=== PATIENT | female | born 1960 | race American Indian/Alaskan Native ===

== ENCOUNTER 2021-03-24 13:51 | Emergency (ER) | payer MEDICARE, OTHER ==
--- NOTE | 2021-03-24 16:37 | Event Note ---
ED Screening Note Date of service: 03/24/21 Time: 16:31 ED Screening Note: 60-year-old female with a past medical history of hypertension and tobacco use presents to the ER today with complaints of hemoptysis. She states that she noticed it today. She also reports mild bleeding from her left nare which has since resolved. She denies any associated wheezing, chest pain, shortness of breath, fever or chills. She states that she take a baby aspirin daily. This initial assessment/diagnostic orders/clinical plan/treatment(s) is/are subject to change based on patients health status, clinical progression and re- assessment by fellow clinical providers in the ED. Further treatment and workup at subsequent clinical providers discretion. Patient/guardian urged not to elope from the ED as their condition may be serious if not clinically assessed and managed. Initial orders include: Chest x-ray CBC/CMP
--- NOTE | 2021-03-24 17:04 | XRay Report ---
CHEST 2 VIEWS INDICATION / CLINICAL INFORMATION: HEMOPTYSIS. COMPARISON: None available. FINDINGS: SUPPORT DEVICES: None. HEART / MEDIASTINUM: No significant abnormality. LUNGS / PLEURA: No significant pulmonary or pleural abnormality. No pneumothorax. ADDITIONAL FINDINGS: No significant additional findings. IMPRESSION: 1. No acute findings. Signer Name: Ru Dawkins MD Signed: 03/24/2021 4:59 PM Workstation Name: [id number]
[2021-03-24 17:21] LABS: Basophils # (Auto) 0.1 K/mm3 (0.0-0.1); Eosinophils # (Auto) 0.1 K/mm3 (0.0-0.4); Eosinophils % (Auto) 0.6 % (0.0-4.3); Hemoglobin 15.5 gm/dl (10.1-14.3); Lymphocytes # (Auto) 2.1 K/mm3 (1.2-5.4); Lymphocytes % (Auto) 22.1 % (13.4-35.0); Mean Corpuscular HGB Conc 34 % (30-34); Mean Corpuscular Volume 92 fl (79-97); Monocytes # (Auto) 0.6 K/mm3 (0.0-0.8); Monocytes % (Auto) 6.1 % (0.0-7.3); Platelet Count 328 K/mm3 (140-440); Red Blood Count 5.01 M/mm3 (3.65-5.03); Red Cell Distribution Width 13.8 % (13.2-15.2)
[2021-03-24 17:34] LABS: Alanine Aminotransferase 17 units/L (7-56); Albumin 4.2 g/dL (3.9-5); BUN/Creatinine Ratio 16; Blood Urea Nitrogen 14 mg/dL (7-17); Calcium 9.6 mg/dL (8.4-10.2); Hemolysis Index 5
--- NOTE | 2021-03-24 21:51 | Emergency Department Report ---
ED General Adult HPI - General Chief complaint: Nosebleed Stated complaint: mouth and nose bleeding PUI?: No Source: patient Mode of arrival: Ambulatory Limitations: No Limitations - History of Present Illness Initial comments: Patient is a 60-year-old -Maced[place] female with a history of morbid obesity, tobacco abuse and hypertension who presents to the ED with acute onset intermittent left-sided epistaxis for the last 12 hours. Patient states that she woke up in the morning and try to clear her throat with a cough and noticed some blood mixed with mucus. Patient states that while she was still in front of her meter trying to wash her mouth she also noticed left-sided nosebleed. Patient states that she tried to pinch her nose at home which helped control the nosebleed but that the nosebleed on the left side became persistent after she sneezed and blew her nose. Patient also complains of nasal and sinus congestion for the last 1 week. Patient states that she decided come to the ED for evaluation when she noticed that the nosebleed was persistent and that each time she cleared her throat she noticed blood mixed with mucus. Patient denies dizziness, syncope, chest pain, shortness of breath, fever, chills, traumatic injury, headache, lightheadedness, abdominal pain, nausea and vomiting or palpitations. MD Complaint: Epistaxis; dry cough; nasal and sinus congestion -: Sudden, hour(s) (12) Location: face Radiation: non-radiation Severity scale (0 -10): 0 Consistency: intermittent Improves with: none Worsens with: other (cough) Associated Symptoms: denies other symptoms, cough, other (Nosebleed). denies: confusion, chest pain, diaphoresis, fever/chills, headaches, loss of appetite, malaise, nausea/vomiting, rash, seizure, syncope, weakness Treatments Prior to Arrival: none - Related Data Previous Rx's Medication Instructions Recorded Last Taken Type Benzonatate [Tessalon Perles] 100 mg PO Q8HR #30 capsule 03/24/21 Unknown Rx Allergies Allergy/AdvReac Type Severity Reaction Status Date / Time fexofenadine [From Parul] Allergy Unknown Verified 03/24/21 15:47 ED Review of Systems ROS: Stated complaint: mouth and nose bleeding Other details as noted in HPI Constitutional: denies: chills, fever Eyes: denies: eye pain, eye discharge, vision change ENT: epistaxis. denies: ear pain, throat pain Respiratory: cough. denies: shortness of breath, wheezing Cardiovascular: denies: chest pain, palpitations Endocrine: no symptoms reported Gastrointestinal: denies: abdominal pain, nausea, diarrhea Genitourinary: denies: urgency, dysuria, discharge Musculoskeletal: denies: back pain, joint swelling, arthralgia Skin: denies: rash, lesions Neurological: denies: headache, weakness, paresthesias Psychiatric: denies: anxiety, depression Hematological/Lymphatic: denies: easy bleeding, easy bruising ED Past Medical Hx - Past Medical History Previous Medical History?: Yes Hx Hypertension: Yes - Surgical History Past Surgical History?: Yes Additional Surgical History: TL - Medications Home Medications: Home Medications Medication Instructions Recorded Confirmed Last Taken Type Benzonatate [Tessalon Perles] 100 mg PO Q8HR #30 capsule 03/24/21 Unknown Rx ED Physical Exam - General Limitations: No Limitations General appearance: alert, in no apparent distress - Head Head exam: Present: atraumatic, normocephalic, normal inspection - Eye Eye exam: Present: normal appearance, PERRL, EOMI Pupils: Present: normal accommodation - ENT ENT exam: Present: normal exam, normal orophraynx, mucous membranes moist, TM's normal bilaterally, normal external ear exam - Neck Neck exam: Present: normal inspection, full ROM - Respiratory Respiratory exam: Present: normal lung sounds bilaterally. Absent: respiratory distress, wheezes, rales, rhonchi, chest wall tenderness, accessory muscle use, decreased breath sounds, prolonged expiratory - Cardiovascular Cardiovascular Exam: Present: normal rhythm, tachycardia, normal heart sounds. Absent: systolic murmur, diastolic murmur, rubs, gallop - GI/Abdominal GI/Abdominal exam: Present: soft, normal bowel sounds. Absent: distended, tenderness, guarding, rebound, hyperactive bowel sounds, hypoactive bowel sounds, organomegaly - Extremities Exam Extremities exam: Present: normal inspection, full ROM, normal capillary refill - Back Exam Back exam: Present: normal inspection, full ROM. Absent: tenderness, CVA tenderness (R), CVA tenderness (L), muscle spasm, paraspinal tenderness, verteb ral tenderness - Neurological Exam Neurological exam: Present: alert, oriented X3, CN II-XII intact, normal gait, reflexes normal - Psychiatric Psychiatric exam: Present: normal affect, normal mood, anxious - Skin Skin exam: Present: warm, dry, intact, normal color. Absent: rash ED Course Vital Signs 03/24/21 03/24/21 16:29 22:15 Temperature 98.4 F Pulse Rate 103 H 72 Respiratory 18 16 Rate Blood Pressure 184/121 164/117 [Right] O2 Sat by Pulse 96 99 Oximetry ED Medical Decision Making - Lab Data Result diagrams: 03/24/21 17:00 03/24/21 17:00 - Radiology Data Radiology results: report reviewed, image reviewed [facility] [address] [place] [address] XRay Report Signed Patient: Wilfrid English MR#: [id number] : 1960 Acct:[id number] Age/Sex: 60 / F A DM Date: 03/24/21 Loc: ED Attending Dr: Ordering Physician: LJ MARLEY Date of Service: 03/24/21 Procedure(s): XR chest routine 2V Accession Number(s): [id number] cc: LJ MARLEY Fluoro Time In Minutes: CHEST 2 VIEWS INDICATION / CLINICAL INFORMATION: HEMOPTYSIS. COMPARISON: None available. FINDINGS: SUPPORT DEVICES: None. HEART / MEDIASTINUM: No significant abnormality. LUNGS / PLEURA: No significant pulmonary or pleural abnormality. No pneumothorax. ADDITIONAL FINDINGS: No significant additional findings. IMPRESSION: 1. No acute findings. Signer Name: Ru Dawkins MD Signed: 03/24/2021 4:59 PM Workstation Name: [id number] Transcribed By: WILLIE Dictated By: Ru Dawkins MD Electronically Authenticated By: Ru Dawkins MD Signed Date/Time: 03/24/211658 DD/ 58 TD/TT: - Medical Decision Making This is a 60-year-old -[place]aced[place] female with a history of morbid obesity, tobacco abuse and hypertension who presents to the ED with acute onset intermittent left-sided epistaxis for the last 12 hours. Patient states that she woke up in the morning and try to clear her throat with a cough and noticed some blood mixed with mucus. Patient states that while she was still in front of her meter trying to wash her mouth she also noticed left-sided nosebleed. Patient states that she tried to pinch her nose at home which helped control the nosebleed but that the nosebleed on the left side became persistent after she sneezed and blew her nose. Patient also complains of nasal and sinus congestion for the last 1 week. Patient states that she decided come to the ED for evaluation when she noticed that the nosebleed was persistent and that each time she cleared her throat she noticed blood mixed with mucus. In the ED, patient is alert and oriented x3 and is not in distress but appears anxious, patient crying during the physical exam because of anxiety due to her medical conditions and family stressors. Patient is tachycardic but afebrile in triage. Lab test results were reviewed and are all nonactionable. Chest x-ray showed no acute cardiopulmonary abnormalities. Patient symptoms are likely due to nasal congestion which resulted in the patient blowing her nose and sneezing and there by causing left-sided epistaxis, blood which flowed into the patient's throat and scattered to bring her to the ED. Patient has not had any nosebleed since being admitted to the ED. On reevaluation, patient is alert and oriented x3, fully interactive during the physical exam, blood pressure improved and tachycardia resolved. Patient was discharged home on medications for cough and advised to follow-up with her primary care physician in 5 to 7 days for reevaluation or return to the ED immediately if symptoms get worse. - Differential Diagnosis Nosebleed; hemoptysis; bronchitis; pneumonia; URI Critical care attestation.: If time is entered above; I have spent that time in minutes in the direct care of this critically ill patient, excluding procedure time. ED Disposition Clinical Impression: Left-sided nosebleed Allergic rhinitis Qualifiers: Allergic rhinitis trigger: unspecified Allergic rhinitis seasonality: seasonal Qualified Code(s): J30.2 - Other seasonal allergic rhinitis Acute bronchitis Qualifiers: Bronchitis organism: other organism Qualified Code(s): J20.8 - Acute bronchitis due to other specified organisms Disposition: 01 HOME / SELF CARE / HOMELESS Is pt being admited?: No Does the pt Need Aspirin: No Condition: Stable Instructions: Cough, Adult, [id number], Allergic Rhinitis, Adult, [id number], Nosebleed, [id number], Acute Bronchitis (ED) Additional Instructions: All lab test results were reviewed and are all nonactionable. Chest x-ray shows no acute cardiopulmonary abnormalities or pneumonitis. Her symptoms are likely due to allergy symptoms resulting in nosebleed which ended up entering into her throat and airway and therefore when you coughed up blood it was all from nosebleed. Therefore take medications as needed for cough, take your allergy medications and drink plenty of fluids. Ensure that your room is fully shalini tilated with enough humidity. Follow-up with your primary care physician in 5 to 7 days for reevaluation. Return to the ED immediately if symptoms get worse. Prescriptions: Benzonatate [Tessalon Perles] 100 mg PO Q8HR #30 capsule Referrals: BELKIS MCCARTHY MD [Staff Physician] - 3-5 Days Time of Disposition: 21:51 Print Language: BULGARIAN
[2021-03-24 22:25] VITALS: BP 164/117
== END 2021-03-24 22:50 | disposition home or self-care (01) ==
LOC: ED 13:51
DX: R04.0 Epistaxis (principal); J30.9 Allergic rhinitis, unspecified; J20.8 Acute bronchitis due to other specified organisms; I10 Essential (primary) hypertension; Z98.890 Other specified postprocedural states; Z88.8 Allergy status to other drugs, medicaments and biological substances; Z79.899 Other long term (current) drug therapy
CPT/HCPCS: 36415; 71046; 80053; 85025; 99283